=== PATIENT | female | born 1985 | race African-American/Black ===

== ENCOUNTER 2017-03-07 22:22 | Inpatient (IN) ==
[2017-03-07] MEDS ORDERED: CITRIC ACID/SODIUM CITRATE 30 ML UDCUP PO ONE (22:43)
[2017-03-07] MEDS ORDERED: ceFAZolin 2,000 MG in PREMIX 1 EACH IV ONE (22:43)
[2017-03-07] MEDS ORDERED: MAGNESIUM SULF RIDER 100 ML IV ONE (22:47)
[2017-03-07] MEDS ORDERED: OXYTOCIN 10 UNIT/ML VIAL ONE (22:49)
[2017-03-07] MEDS ORDERED: OXYTOCIN/LR 20 UNIT/1,000 ML BAG IV ONE (22:49)
[2017-03-07] MEDS ORDERED: BETAMETH SODIUM PHOS/ACETATE 30 MG/5 ML VIAL ONE ×2 (22:49→22:50)
[2017-03-07] MEDS ORDERED: MAGNESIUM SULF DRIP 40 GM/1,000 ML ML IV ONE (22:49)
[2017-03-07] MEDS ORDERED: BETAMETH SODIUM PHOS/ACETATE 30 MG/5 ML VIAL IM ONE (22:52)
[2017-03-07] MEDS ORDERED: hydrALAZINE 20 MG/1 ML VIAL IV PRN (22:53)
[2017-03-07] MEDS ORDERED: FAMOTIDINE 20 MG/2 ML VIAL IV ONE (22:54)
[2017-03-07 22:55] LABS: Basophils % 0.1 % (0.0-0.8); Hematocrit 33.5 VOL% (35.7-47.0); Hemoglobin 11.2 GM/DL (12.0-16.0); Immature Granulocytes % 1.4 %; Immature Granulocytes Absolute 0.33 #; Lymphocytes # 1.6 10*3/uL (1.4-4.0); Lymphocytes % 6.7 % (21.3-54.2); Mean Corpuscular HGB Conc 33.4 GM/DL (32-36); Mean Corpuscular Hemoglobin 29 PG (27-34); Mean Corpuscular Volume 86.6 FL (87-102); Mean Platelet Volume 10.8 FL (9.6-12.0); Monocytes # 1.1 10*3/uL (0.11-0.8); Monocytes % 4.9 % (1.7-12.7); Neutrophils # 20.2 10*3/uL (1.4-7.4); Neutrophils % 86.9 % (38.7-73.9); Platelet Count 255 T/CUMM (130-400); Red Blood Count 3.87 MC/CUMM (3.8-5.5); Red Cell Distribution Width 14.2 % (9.3-17.3); White Blood Count 23.3 T/CUMM (4-12)
[2017-03-07] MEDS ORDERED: OXYTOCIN/LR 30 UNIT/1,000 ML BAG IV ONE ×2 (22:59→23:30)
[2017-03-07] MEDS ORDERED: LACTATED RINGERS 1,000 ML IV SCH (23:00)
[2017-03-07] MEDS ORDERED: MAGNESIUM SULF DRIP 40 GM/1,000 ML ML IV SCH (23:00)
[2017-03-07 23:17] LABS: INR 0.9; PT Patient Result 9.7 SECS; Partial Thromboplastin Time 32.6 SECS (0-40)
[2017-03-07 23:17] LABS: Apearance,Urine Slightly Hazy (Clear); Bacteria,Urine Moderate /HPF (Few); Bilirubin,Urine Negative (Negative); Blood, Urine Negative (Negative); Glucose,Urine (UA) Negative (Negative); Ketones,Urine 80 mg/dL (Negative); Mucus,Urine Occasional /LPF (Occasional); Nitrite,Urine Negative (Negative); Protein,Urine 30 MG/DL; RBC,Urine 2 /HPF (0-4); Squamous Epithelial Cell,Urine Occasional /HPF (0-10); Transitional Epi Cells,Urine Occasional /HPF (<1); Urine Color Yellow (Yellow); WBC,Urine 16 /HPF (0-6)
[2017-03-07 23:22] LABS: Barbiturates Screen,Urine Negative (Negative); Benzodiazepines Screen,Urine Negative (Negative); Cannabinoid Screen,Urine Negative (Negative); Opiate Screen,Urine Negative (Negative); Phencyclidine Screen,Urine Negative (Negative)
[2017-03-07 23:22] LABS: Albumin 2.4 G/DL (3.4-5.0); Bilirubin,Total 0.8 MG/DL (0.2-1.0); Calcium 8.2 MG/DL (8.5-10.1); Osmolality,Calculated 265.1 MOS/KG (273-304); Potassium 3.6 MMOL/L (3.5-5.1); Total Protein 6.5 G/DL (6.4-8.3)
[2017-03-08] MEDS ORDERED: fentaNYL 100 MCG/2 ML VIAL ONE (00:23)
[2017-03-08] MEDS ORDERED: MIDAZOLAM 2 MG/2 ML VIAL ONE (00:24)
--- NOTE | 2017-03-08 00:27 | OB/GYN History & Physical ---
History of Present Illness Chief complaint: Active labor, spontaneous rupture membranes meconium History of present illness: Ms. Rogers is a 31 year old female 3 para 2 EDC is uncertain ultrasound was obtained upon arrival to labor and delivery, ultrasound demonstrated 34 weeks and 4 days. Patient obvious rupture membranes thick meconium staining cardiac activity was noted. Patient has not had any care with this . Last was a stillborn and was also a section was performed at approximately 29 weeks. Patient was anemic immediately given IV magnesium sulfate, 4 g bolus, also 2 doses of IV Apresoline. Ultrasound was obtained in labor and delivery demonstrated vertex presentation with measured approximately 34 weeks gestation. Senna was also grade 3. Surgery was immediately notified this patient was prepared for a repeat section secondary to oligohydramnios , severe preeclampsia, positive drug screen for crystal meth. Home Medications Medication Instructions Recorded Confirmed Type No Known Home Medications [No 03/07/17 03/07/17 History Known Home Medications] Allergies Allergy/AdvReac Type Severity Reaction Status Date / Time aspirin Allergy Intermediate ITCHING Verified 11/05/14 22:45 Oranges Allergy Intermediate ITCHING Verified 11/05/14 22:45 Medical,Surgical,& Family Hx - Medical History Cardio: History of: Hypertension No history of: CHF, Cardiovascular Problems Psychological: No history of: Behavior Problems, Depression, Psychiatric/Substance Abuse Tx , Psychiatric Problems Neurology: History of: Migraine No history of: Seizures HEENT: No history of: Ear Problem, Eye Problem Respiratory: History of: Pneumonia No history of: Asthma Genitourinary: No history of: Bladder Problem Gastrointestinal: No history of: Bowel Obstruction, Diverticulitis/ Diverticulosis, GERD Reproductive: History of: Complication No history of: Abnormal Pap Smear, Ectopic - Surgical History Neurologic Surgeries: Patient denies: Neurologic Surgery Reproductive Surgeries: Surgical HX of;: Section - Family History Family History: Denies;: Family Anesthesia Reaction, Family Cancer, Family Diabetes, Family Heart Disease, Family Hypertension, Family Psychiatric Problems, Family Stroke - Social History Smoking Status: Current some day smoker Frequency of Alcohol Use: None Type of Drug Use: None 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 Vitals: Vital Signs Pulse Resp BP 03/07/17 23:00 209/111 03/07/17 22:39 65 20 165/96 General appearance: disheveled - Antepartum / Post Antepartum Exam Cervix - Dilatation: 4 cm Station: Minus Rupture: Positive meconium - Head Head exam: Present: normal inspection - Eye Eye exam: Present: EOMI Pupils: Present: JUJU - ENT ENT exam: Present: normal exam - Neck Neck exam: Present: normal inspection - Respiratory Respiratory exam: Present: clear to auscultation bilaterally - Breast Breasts: as per HPI - Cardiovascular Cardiovascular exam: Present: regular rate and rhythm, tachycardia - GI/Abdominal GI/Abdominal exam: Present: normal bowel sounds - Extremities Exam Extremities exam: Present: normal inspection - Back Exam Back exam: Present: normal inspection - Neurological Exam Neurological exam: Present: alert - Psychiatric Psychiatric exam: Present: normal affect, agitated, anxious - Skin Skin exam: Present: normal color Assessment and Plan (1) Oligohydramnios Status: Acute Current Visit: Yes (2) PIH ( induced hypertension) Status: Acute Current Visit: Yes (3) Drug abuse Status: Acute Current Visit: Yes (4) Status post repeat low transverse section Status: Acute Assessment and plan: Repeat section, no care, drug abuse, PIH, oligohydramnios, possible IUGR, Current Visit: Yes Results - Labs CBC & BMP: 03/07/17 22:46 03/07/17 22:46
[2017-03-08] MEDS ORDERED: ONDANSETRON 4 MG/2 ML VIAL IV PRN (00:33)
[2017-03-08] MEDS ORDERED: ACETAMINOPHEN 325 MG TABLET PO PRN (00:33)
[2017-03-08] MEDS ORDERED: SIMETHICONE CHEW 80 MG TABLET PO PRN (00:33)
[2017-03-08] MEDS ORDERED: OXYTOCIN/LR 20 UNIT/1,000 ML BAG IV ONE (00:33)
[2017-03-08] MEDS ORDERED: RHO(D) IMMUNE GLOBULIN 300 MCG SYRINGE IM ONE (00:33)
--- NOTE | 2017-03-08 00:33 | Operative Note ---
Date of procedure: 03/08/17 Procedure: Preoperative diagnosis: No care, status post previous section 2, oligohydramnios, positive drug screen for crystal met, PIH Postoperative diagnosis: Same Anesthesia:[] General Estimated blood loss: [] 300 Surgeon: Dr. Arana Findings: [] Thick meconium, no amniotic fluid, questionable IUGR, male born at 20 3:33 PM, Apgars were 6 at 1 minute and 8 at 5, weight was 6 pounds and 4 ounces, nursery present for this delivery Complications: None Procedure: Low transverse section The patient was taken to the operating suite heart tones were obtained prior to and after regional anesthesia was obtained. She was placed in supine position her abdomen was prepped and draped in usual manner for major abdominal surgery. Through an abdominal incision the skin, subcutaneous, fascial layer and peritoneal the abdomen was entered. The bladder flap was created and a low transverse incision was made.. Fluid demonstrated no fluid, thick meconium, very necrotic placenta was also noted. Fetus also demonstrated the possibility of IUGR with peeling skin x, Apgars, the placenta was delivered and sent to lab for further evaluation. Injected with intrauterine Pitocin. The first layer of the uterus was closed with #1 Vicryl in a continuous locking manner. Close to imbricate the first layer with #1 Vicryl. The peritoneum was approximated with #2-0 Vicryl.[] All the last sponges and instruments were accounted for -2. ) #2-0 Vicryl. Fascia was approximated with #0-0 Maxon.. The skin was approximated with anne-marie. She tolerated procedure well and was taken to recovery room in stable condition. Surgeon / Physician: Brandin Arana Results - Labs CBC & BMP: 03/07/17 22:46 03/07/17 22:46 Discharge Plan - Discharge Medications No Action No Known Home Medications [No Known Home Medications] - Follow Up or Referral - Forms/Instructions
--- NOTE | 2017-03-08 00:36 | Anesthesia Post-Op ---
Anesthesia Post OP - Post Ansesthetic Evaluation Patient seen in post op: Yes Resp: within normal limits CV: within normal limits Mental: within normal limits Temp: within normal limits [id number]: within normal limits Nausea and Vomiting: within normal limits Pain: within normal limits
[2017-03-08] MEDS ORDERED: SEVOFLURANE 1 UNIT/15 MINUTE INH ONE (00:37)
[2017-03-08] MEDS ORDERED: LACTATED RINGERS 1,000 ML IV SCH (01:00)
[2017-03-08] MEDS ORDERED: NALOXONE 0.4 MG/ML VIAL IV PRN (01:17)
[2017-03-08 01:30] LABS: Lymphocytes 11 % (20-55); Platelet Estimate Normal; Segmented Neutrophils 83 % (50-85); Total Cells Counted 100
[2017-03-08] MEDS ORDERED: HYDROmorphone PCA 30 MG/30 ML SYRINGE IV SCH (01:30)
[2017-03-08 06:12] LABS: Basophils % 0.1 % (0.0-0.8); Hematocrit 29.2 VOL% (35.7-47.0); Hemoglobin 9.7 GM/DL (12.0-16.0); Immature Granulocytes % 1.1 %; Immature Granulocytes Absolute 0.29 #; Lymphocytes # 1.1 10*3/uL (1.4-4.0); Lymphocytes % 4.1 % (21.3-54.2); Mean Corpuscular HGB Conc 33.2 GM/DL (32-36); Mean Corpuscular Hemoglobin 29 PG (27-34); Mean Corpuscular Volume 86.9 FL (87-102); Mean Platelet Volume 11.1 FL (9.6-12.0); Neutrophils # 23.4 10*3/uL (1.4-7.4); Neutrophils % 90.7 % (38.7-73.9); Platelet Count 258 T/CUMM (130-400); Red Blood Count 3.36 MC/CUMM (3.8-5.5); Red Cell Distribution Width 14.4 % (9.3-17.3); White Blood Count 25.8 T/CUMM (4-12)
[2017-03-08 06:16] LABS: HIV Antigen/Antibody Result Nonreactive (Nonreactive)
--- NOTE | 2017-03-08 07:15 | Ultrasound Report ---
Exam: US OB >= 14 weeks fetus Date: 03/07/2017 10:51 PM Indication: Pain 34 weeks 6 days in active labor patient stated she didn't know she was Comparison: None recent Findings: Study was initially reviewed by [facility]. The fetus is in the cephalic presentation with an anterior placenta. BPD: 33 weeks 2 days Head circumference: 33 weeks 4 days Abdominal circumference: 36 weeks 6 days Femur length: 36 weeks 2 days Amniotic fluid index: 0 Estimated weight: 2688 +/- 403.27 g or 5 lbs. 15 oz. Cervical length: Not well demonstrated heart rate: 153 bpm structures: Four-chamber heart view stomach bubble and bladder are demonstrated. Limited exam prior to Maternal ovaries not visualized. Impression: 1. 34 weeks 6 day intrauterine estimated date of delivery of 04/12/2017. 2. Oligohydramnios suggest rupture of membranes Critical test report was called to Dr. Arana by [facility] radiology at 12:26 AM Ultrasound images were stored and captured PROCEDURE INTERPRETED AT [facility] Final Report Signed by: Dr. Bharat Oliva
[2017-03-08 07:47] LABS: Band Neutrophils 5 % (0-10); Hypochromasia 1+; Lymphocytes 3 % (20-55); Microcytosis 1+; Segmented Neutrophils 88 % (50-85); Total Cells Counted 100
[2017-03-08 07:48] LABS: Platelet Estimate Normal
[2017-03-08] MEDS: DOCUSATE SODIUM 100 MG CAPSULE PO SCH ×2 (08:13→22:52)
[2017-03-08] MEDS: MULTIVITAMIN (PRENATAL) TABLET PO SCH (08:13)
[2017-03-08 08:48] LABS: Hepatitis B Surface Ag Quant 0.16 Index; Hepatitis B Surface Ag Result Negative (Negative)
--- NOTE | 2017-03-08 09:08 | OB/GYN Progress Note ---
Assessment and Plan (1) Previous section Status: Acute Current Visit: Yes (2) Status post repeat low transverse section Status: Acute Assessment and plan: Initiate routine postop orders. 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 - Constitutional Vitals: Vital Signs Temp Pulse Pulse Resp BP BP Pulse Ox 03/08/17 07:49 18 03/08/17 05:38 18 03/08/17 05:00 18 03/08/17 04:00 18 03/08/17 02:58 18 03/08/17 01:49 96 H 18 158/96 03/08/17 01:40 79 18 170/102 100 03/08/17 01:19 90 18 166/100 03/08/17 01:04 85 18 164/98 03/08/17 00:49 83 18 169/97 03/08/17 00:34 97.3 F L 90 20 159/87 03/07/17 23:00 209/111 03/07/17 22:39 65 20 165/96 Pulse Ox 03/08/17 07:49 03/08/17 05:38 03/08/17 05:00 03/08/17 04:00 03/08/17 02:58 03/08/17 01:49 99 03/08/17 01:40 03/08/17 01:19 100 03/08/17 01:04 100 03/08/17 00:49 100 03/08/17 00:34 03/07/17 23:00 03/07/17 22:39 General appearance: no acute distress - Antepartum / Post Post Exam Breast: bilateral: normal Abdomen obstetrics: Present: bowel sounds normal Vagina: Present: normal moisture, discharge (Light lochia rubra) Uterus exam: Present: enlarged (Fundus firm midline) - Gyencological / Post Surgical Post Surgical Exam Lungs: bilateral: normal Chest: Normal S1, Normal S2 Extremities 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: normal Abdomen obstetrics progress note: Present: normal appearance Incision OB: Present: normal, dry, intact - Respiratory Respiratory exam: Present: clear to auscultation bilaterally - Cardiovascular Cardiovascular exam: Present: regular rate and rhythm - GI/Abdominal GI/Abdominal exam: Present: normal bowel sounds, soft - Extremities Exam Extremities exam: Present: normal inspection - Neurological Exam Neurological exam: Present: alert, oriented X3 - Psychiatric Psychiatric exam: Present: normal affect, normal mood - Skin Skin exam: Present: normal color, warm Results - Labs CBC & BMP: 03/08/17 05:31 03/07/17 22:46
[2017-03-08] MEDS: IBUPROFEN 800 MG TABLET PO PRN (14:11)
[2017-03-08] MEDS: FERROUS SULFATE 325 MG TABLET PO SCH ×2 (14:12→22:52)
[2017-03-08] MEDS: MAGNESIUM HYDROXIDE SUSP 30 ML UDCUP PO PRN (22:52)
[2017-03-08] MEDS ORDERED: PROPOFOL 200 MG/20 ML VIAL IV ONE (23:16)
[2017-03-08] MEDS ORDERED: hydrALAZINE 20 MG/1 ML VIAL ONE (23:16)
[2017-03-08] MEDS ORDERED: ONDANSETRON 4 MG/2 ML VIAL ONE (23:16)
[2017-03-08] MEDS ORDERED: LABETALOL 100 MG/20 ML VIAL IV ONE (23:16)
[2017-03-08] MEDS ORDERED: SUCCINYLCHOLINE 200 MG/10 ML VIAL ONE (23:16)
[2017-03-09] MEDS: FERROUS SULFATE 325 MG TABLET PO SCH (10:12)
[2017-03-09] MEDS: MULTIVITAMIN (PRENATAL) TABLET PO SCH (10:12)
[2017-03-09] MEDS: DOCUSATE SODIUM 100 MG CAPSULE PO SCH (10:12)
[2017-03-09] MEDS: MAGNESIUM HYDROXIDE SUSP 30 ML UDCUP PO PRN (10:12)
--- NOTE | 2017-03-09 11:20 | Pathology Report from [facility] ---
[facility] ACCESSION # : [id number] PATIENT NAME : Ambar Jiang ORDERING DR : ARVIND SANDOVAL MD CLINICAL HX: IUP @ 34.4 wks per patient; U/S no care, PIH +drug screen , ?prolonged ROM POST-OP DX: Same SPECIMEN INFO: Placenta GROSS DESCRIPTION: The specimen is received in formalin labeled with the patients name and consists of a 479 gram placenta which measures 19.0 x 18.0 x 2.8 cm. membranes are pink-coffey and translucent with heavy meconium staining noted. The umbilical cord measures 34.0 cm, is hypercoiled. The cord contains three vessels and is eccentrically inserted. The surface is blue -fuentes and intact. The maternal surface displays hemorrhagic, mildly disrupted cotyledons with an area of fibrin noted upon sectioning measuring 2.0 x 1.5 cm. Sections submitted: A membranes and cord, B and maternal surfaces. DIAGNOSIS FOR AMBAR JIANG: PLACENTA, 34.4 WEEKS GESTATIONAL AGE, DELIVERY: Slightly immature placenta, 479 gm trimmed weight. Pigment laden macrophages within the membranes. Severe acute chorioamnionitis. Acute funisitis in a trivascular umbilical cord, 34 cm in length. Placental infarct. COLLECTED DATE: 03/08/2017 [facility] REPORT DATE: 03/09/2017 ELECTRONICALLY SIGNED BY: Harriett Haney M.D. 03/09/2017 - 10:58:22 MTDCelia
[2017-03-09] MEDS: IBUPROFEN 800 MG TABLET PO PRN (11:54)
--- NOTE | 2017-03-09 14:58 | OB/GYN Progress Note ---
Assessment and Plan (1) Previous section Status: Acute Current Visit: Yes (2) Status post repeat low transverse section Status: Acute Assessment and plan: Initiate routine postop orders. 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 - Constitutional Vitals: Vital Signs Temp Pulse Resp BP Pulse Ox 03/09/17 12:00 98.4 F 78 20 134/84 98 03/09/17 08:00 98.7 F 81 16 125/69 97 03/09/17 06:55 18 03/09/17 06:00 72 18 126/80 98 03/09/17 04:00 98.3 F 79 18 130/71 99 03/09/17 03:00 18 03/09/17 02:00 84 18 126/72 98 03/09/17 01:00 18 03/09/17 00:00 96.6 F L 82 18 134/76 98 03/08/17 22:00 88 18 123/71 99 03/08/17 20:00 96.6 F L 100 H 18 117/75 98 03/08/17 18:00 91 H 18 131/86 98 03/08/17 16:00 97.8 F 92 H 20 133/87 98 General appearance: no acute distress - Antepartum / Post Post Exam Breast: bilateral: normal Abdomen obstetrics: Present: bowel sounds normal Vagina: Present: normal moisture, discharge (Light lochia rubra) Uterus exam: Present: enlarged (Fundus firm midline) - Gyencological / Post Surgical Post Surgical Exam Lungs: bilateral: normal Chest: Normal S1, Normal S2 Extremities 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
--- NOTE | 2017-03-09 15:00 | Discharge Summary ---
<Shira Chinchilla - Last Filed: 03/09/17 14:58> Hospital Course - Hospital Course Hospital Course: Ms. Rogers presented to the labor department in active labor with no care. She was a previous section and was delivered via at this visit. She delivered a viable infant with meconium staining which is currently in the NICU. The patient has done well postoperatively. Her incision is well approximated without signs of infection. Her bowel sounds are positive she has had a normal bowel movement. Her fundus is firm and midline. Her bleeding is minimal with no odor. Her vital signs and lab values are stable. She will be discharged home prescriptions for pain and a follow-up appointment in our office. Diagnosis - Discharge Diagnosis (1) Previous section Status: Acute (2) Status post repeat low transverse section Status: Acute (3) Active labor Status: Acute Specialty Discharge - Follow Up or Referrals Follow up with: Brandin Arana MD [Physician] - 2 Weeks Discharge Plan - Discharge Data Disposition: Disch To Home/Self Care Condition at Discharge: Stable Discharge Diet: advance to your usual diet, regular diet Activity: increase activity as tolerated, no lifting, no prolonged standing Hygiene: may shower Weight Bearing at Discharge: partial weight bearing Driving: not until seen by doctor Contact your physician if you experience:: fever over 101, pain uncontrolled by pain medications - Discharge Medications New Ibuprofen Tab [Motrin Tab] 800 mg PO Q8H PRN #30 tablet PRN Reason: Pain Severe (8-10) Ferrous Sulfate Tab [Feosol Original Tab] 325 mg PO BID #60 tablet HYDROcodone/ACETAMIN 5-325 [Seymour 5-325] 2 tablet PO Q6H PRN #30 tablet PRN Reason: Pain Severe (8-10) - Follow Up or Referral Follow Up: Brandin Arana MD [Physician] - 2 Weeks - Forms/Instructions Exam - Constitutional Vitals: Period Temp Pulse Resp BP Sys/Rivera Pulse Ox Last 24 Hr 96.6 F-98.7 F 72-100 16-20 117-134/69-87 97-99 General appearance: no acute distress - Respiratory Respiratory exam: Present: clear to auscultation bilaterally - Cardiovascular Cardiovascular exam: Present: regular rate and rhythm - GI/Abdominal GI/Abdominal exam: Present: normal bowel sounds - Extremities Exam Extremities exam: Present: normal inspection - Neurological Exam Neurological exam: Present: alert, oriented X3 - Psychiatric Psychiatric exam: Present: normal affect, normal mood - Skin Skin exam: Present: normal color, warm DS: Provider Date of admission: 03/07/17 22:43 Primary care physician: . No PCP Attending physician on admission: Brandin Arana MD Consults: 03/07/17 22:43 Consult to Anesthesiology [CONS] Routine Consulting Provider: Reason for Anesthesiology: Pre-op Clearance 03/08/17 00:34 Consult to International Marketing Intern [CONS] Routine Consult International Marketing Intern: Breast Feeding 03/08/17 07:32 Consult to Case Mgmt/Social Srvs [CONS] Routine Reason for Case Mgmt/Social Srvs: Other Abuse/Neglect Consult Comment: no care pos drug screen Discharging clinician: Shira Chinchilla CNM Expected date of discharge: 03/10/17 <Brandin Arana - Last Filed: 03/09/17 15:12> Diagnosis - Discharge Diagnosis (1) Oligohydramnios Status: Acute (2) PIH ( induced hypertension) Status: Acute (3) Drug abuse Status: Acute (4) Status post repeat low transverse section Status: Acute
[2017-03-09 17:13] VITALS: BP 131/74
== END 2017-03-09 20:25 | disposition home or self-care (01) | DRG 765 ==
LOC: N.LDOUT 22:22 → N.LD 22:25 → N.OB 03-08 13:56
PROVIDERS: ADMIT Obstetrics & Gynecology; ATTEND Obstetrics & Gynecology
PROC: LDCSECT (ICD-10-PCS; 2017-03-07 23:00)

== ENCOUNTER 2018-10-19 10:58 | Inpatient (IN) ==
[2018-10-19] MEDS ORDERED: ONDANSETRON 4 MG/2 ML VIAL IV STA (11:34)
[2018-10-19] MEDS ORDERED: MORPHINE 4 MG/1 ML VIAL IV STA (11:34)
[2018-10-19] MEDS ORDERED: SODIUM CHLORIDE 0.9% 2,000 ML IV STA (11:34)
[2018-10-19 11:55] LABS: Basophils % 0.1 % (0.0-0.8); Eosinophils # 0.1 10*3/uL (0.0-0.87); Eosinophils % 0.2 % (0.00-10.9); Immature Granulocytes % 1.1 %; Immature Granulocytes Absolute 0.22 #; Lymphocytes % 9.4 % (21.3-54.2); Mean Corpuscular HGB Conc 31.3 GM/DL (32-36); Mean Corpuscular Hemoglobin 30 PG (27-34); Mean Corpuscular Volume 94.9 FL (87-102); Mean Platelet Volume 10.2 FL (9.6-12.0); Monocytes # 1.2 10*3/uL (0.11-0.8); Monocytes % 5.6 % (1.7-12.7); Neutrophils # 17.3 10*3/uL (1.4-7.4); Neutrophils % 83.6 % (38.7-73.9); Platelet Count 107 T/CUMM (130-400); Red Blood Count 1.58 MC/CUMM (3.8-5.5); Red Cell Distribution Width 13.7 % (9.3-17.3); White Blood Count 20.8 T/CUMM (4-12)
[2018-10-19] MEDS ORDERED: SODIUM CHLORIDE 0.9% 1,000 ML IV PRN ×2 (12:01→13:06)
[2018-10-19 12:02] LABS: Hemoglobin 4.7 GM/DL (12.0-16.0)
[2018-10-19 12:07] LABS: Amorphous Crystals,Urine Occasional /HPF (Few); Apearance,Urine CLOUDY (Clear); Bacteria,Urine Moderate /HPF (Few); Bilirubin,Urine Negative (Negative); Blood, Urine Small mg/dL (Negative); Glucose,Urine (UA) Negative (Negative); Ketones,Urine 5 mg/dL (Negative); Mucus,Urine Few /LPF (Occasional); Nitrite,Urine Negative (Negative); Protein,Urine 100 MG/DL; RBC,Urine 22 /HPF (0-4); Squamous Epithelial Cell,Urine Occasional /HPF (0-10); Urine Specific Gravity 1.019 (1.001-1.035); WBC,Urine 348 /HPF (0-6)
[2018-10-19 12:08] LABS: Urine Color Yellow (Yellow)
[2018-10-19 12:10] LABS: Alanine Aminotransferase 10 U/L (13-56); Albumin 2.4 G/DL (3.4-5.0); Alkaline Phosphatase 73 U/L (45-117); Aspartate Amino Transferase 24 U/L (0-37); Blood Urea Nitrogen 17 MG/DL (7-18); Calcium 7.3 MG/DL (8.5-10.1); Glucose 116 MG/DL (74-106); Lipase < 50.0 U/L (73-393); Osmolality,Calculated 277.7 MOS/KG (273-304); Potassium 3.7 MMOL/L (3.5-5.1); Sodium 138 MMOL/L (136-145); Total Protein 5.3 G/DL (6.4-8.3)
[2018-10-19 12:30] LABS: Band Neutrophils 1 % (0-10); Hypochromasia 1+; Lymphocytes 11 % (20-55); Microcytosis 1+; Nucleated Red Blood Cells 1 (0-5); Platelet Estimate Decreased; Segmented Neutrophils 87 % (50-85); Total Cells Counted 100
[2018-10-19] MEDS ORDERED: miSOPROStol 200 MCG TABLET ONE ×2 (13:24→14:45)
[2018-10-19] MEDS ORDERED: LACTATED RINGERS 1,000 ML IV SCH ×2 (13:30→15:30)
[2018-10-19] MEDS ORDERED: OXYTOCIN/D5LR 20 UNIT/1,000 ML PREMIX IV SCH (13:30)
[2018-10-19] MEDS ORDERED: MICROFIBRILLAR COLLAGEN POWDER 1 GM CAN TOP ONE (13:40)
[2018-10-19] MEDS ORDERED: OXYTOCIN/LR 20 UNIT/1,000 ML BAG IV ONE ×2 (13:47→15:20)
[2018-10-19] MEDS ORDERED: OXYTOCIN 10 UNIT/ML VIAL ONE (13:47)
[2018-10-19] MEDS ORDERED: RHO(D) IMMUNE GLOBULIN 300 MCG SYRINGE IM ONE (15:20)
[2018-10-19] MEDS ORDERED: ACETAMINOPHEN 325 MG TABLET PO PRN (15:20)
[2018-10-19] MEDS ORDERED: ceFAZolin 1,000 MG in SYRINGE 1 EACH IV SCH (15:30)
[2018-10-19] MEDS ORDERED: hydrALAZINE 20 MG/1 ML VIAL ONE (15:35)
[2018-10-19] MEDS ORDERED: hydrALAZINE 20 MG/1 ML VIAL IV ONE ×2 (15:35→16:06)
[2018-10-19] MEDS ORDERED: MEPERIDINE 25 MG/1 ML VIAL ONE (15:57)
[2018-10-19] MEDS ORDERED: MEPERIDINE 25 MG/1 ML VIAL IV PRN (15:58)
[2018-10-19] MEDS ORDERED: SUGAMMADEX 200 MG/2 ML VIAL IV ONE (16:19)
[2018-10-19] MEDS ORDERED: LABETALOL 20 MG/4 ML SYRINGE IV ONE ×2 (16:25→16:40)
[2018-10-19] MEDS ORDERED: PROPOFOL 200 MG/20 ML VIAL IV ONE (16:25)
[2018-10-19] MEDS ORDERED: LIDOCAINE 2% TOP JELLY 5 ML TUBE TOP ONE (16:25)
[2018-10-19] MEDS ORDERED: MIDAZOLAM 2 MG/2 ML VIAL ONE (16:26)
[2018-10-19] MEDS ORDERED: SEVOFLURANE 1 UNIT/15 MINUTE INH ONE (16:26)
[2018-10-19] MEDS ORDERED: LIDOCAINE 1% 5 ML VIAL ONE (16:26)
[2018-10-19] MEDS ORDERED: PHENYLEPHRINE 0.5% NASAL SPRAY 15 ML BOTTLE BOTH NARES ONE (16:26)
[2018-10-19] MEDS ORDERED: ROPIVACAINE 0.5% 30 ML VIAL ONE (16:26)
[2018-10-19] MEDS ORDERED: fentaNYL 100 MCG/2 ML VIAL ONE (16:26)
[2018-10-19] MEDS ORDERED: DEXAMETHASONE 4 MG/1 ML VIAL ONE (16:26)
[2018-10-19] MEDS ORDERED: ONDANSETRON 4 MG/2 ML VIAL ONE (16:26)
[2018-10-19] MEDS ORDERED: SUCCINYLCHOLINE 200 MG/10 ML VIAL ONE (16:27)
[2018-10-19] MEDS ORDERED: SODIUM CHLORIDE 0.9% 2,000 ML IV ONE (16:27)
[2018-10-19] MEDS ORDERED: PHENYLEPHRINE 1 MG/10 ML SYRINGE IV ONE (16:27)
[2018-10-19] MEDS ORDERED: ROCURONIUM 100 MG/10 ML VIAL IV ONE (16:27)
[2018-10-19 17:04] LABS: Apearance,Urine CLOUDY (Clear); Bacteria,Urine Many /HPF (Few); Bilirubin,Urine Negative (Negative); Blood, Urine Small mg/dL (Negative); Glucose,Urine (UA) 50 mg/dL (Negative); Ketones,Urine Negative (Negative); Mucus,Urine Occasional /LPF (Occasional); Nitrite,Urine Negative (Negative); Protein,Urine 100 MG/DL; RBC,Urine 20 /HPF (0-4); Squamous Epithelial Cell,Urine Few /HPF (0-10); Urine Color Yellow (Yellow); Urine Specific Gravity 1.014 (1.001-1.035); Urine Urobilinogen < 2.0 EU/DL (0.2-1.0); WBC,Urine 65 /HPF (0-6)
[2018-10-19] MEDS ORDERED: miSOPROStol 200 MCG TABLET RECTAL ONE (17:37)
[2018-10-19] MEDS: HYDROmorphone 2 MG/1 ML VIAL IV PRN (18:03)
[2018-10-19] MEDS: ONDANSETRON 4 MG/2 ML VIAL IV PRN (18:04)
[2018-10-19] MEDS: LABETALOL 100 MG TABLET PO SCH (18:11)
[2018-10-19] MEDS: LISINOPRIL 10 MG TABLET PO SCH (18:21)
[2018-10-19] MEDS ORDERED: FUROSEMIDE 40 MG/4 ML VIAL IV ONE (19:09)
[2018-10-19 20:32] LABS: Apearance,Urine CLOUDY (Clear); Bacteria,Urine Many /HPF (Few); Bilirubin,Urine Negative (Negative); Blood, Urine Small mg/dL (Negative); Glucose,Urine (UA) 50 mg/dL (Negative); Ketones,Urine Negative (Negative); Nitrite,Urine Negative (Negative); Protein,Urine 100 MG/DL; RBC,Urine 14 /HPF (0-4); Squamous Epithelial Cell,Urine Occasional /HPF (0-10); Urine Color Yellow (Yellow); Urine Specific Gravity 1.011 (1.001-1.035); Urine Urobilinogen < 2.0 EU/DL (0.2-1.0); WBC,Urine 15 /HPF (0-6)
[2018-10-19] MEDS ORDERED: LABETALOL 100 MG TABLET PO SCH (21:00)
[2018-10-19 21:04] LABS: Barbiturates Screen,Urine Negative (Negative); Benzodiazepines Screen,Urine Positive (Negative); Cannabinoid Screen,Urine Negative (Negative); Opiate Screen,Urine Positive (Negative); Phencyclidine Screen,Urine Negative (Negative)
[2018-10-19] MEDS: DOCUSATE SODIUM 100 MG CAPSULE PO SCH (21:16)
[2018-10-19] MEDS ORDERED: diphenhydrAMINE 50 MG/1 ML VIAL IV PRN (22:59)
[2018-10-19] MEDS ORDERED: diphenhydrAMINE 50 MG/1 ML VIAL ONE (23:01)
[2018-10-20] MEDS: LABETALOL 100 MG TABLET PO SCH ×4 (00:27→20:44)
[2018-10-20 04:27] LABS: Basophils % 0.2 % (0.0-0.8); Hematocrit 26.2 VOL% (35.7-47.0); Hemoglobin 8.9 GM/DL (12.0-16.0); Immature Granulocytes % 0.9 %; Immature Granulocytes Absolute 0.19 #; Lymphocytes # 1.1 10*3/uL (1.4-4.0); Lymphocytes % 5.1 % (21.3-54.2); Mean Corpuscular Hemoglobin 28 PG (27-34); Mean Corpuscular Volume 82.4 FL (87-102); Monocytes # 0.6 10*3/uL (0.11-0.8); Monocytes % 2.8 % (1.7-12.7); Neutrophils # 20.2 10*3/uL (1.4-7.4); Platelet Count 111 T/CUMM (130-400); Red Blood Count 3.18 MC/CUMM (3.8-5.5); Red Cell Distribution Width 17.2 % (9.3-17.3); White Blood Count 22.1 T/CUMM (4-12)
[2018-10-20] MEDS: HYDROmorphone 2 MG/1 ML VIAL IV PRN (04:34)
[2018-10-20] MEDS: ONDANSETRON 4 MG/2 ML VIAL IV PRN (04:36)
[2018-10-20 05:09] LABS: Band Neutrophils 1 % (0-10); Lymphocytes 7 % (20-55); Segmented Neutrophils 89 % (50-85); Total Cells Counted 100
[2018-10-20 05:10] LABS: Burr Cells Slight; Hypochromasia 1+; Microcytosis 1+; Platelet Estimate Decreased; Target Cells Slight
[2018-10-20] MEDS ORDERED: ceFAZolin 1,000 MG in SYRINGE 1 EACH IV SCH (05:30)
[2018-10-20] MEDS ORDERED: LISINOPRIL 10 MG TABLET PO SCH (09:00)
[2018-10-20] MEDS: SIMETHICONE CHEW 80 MG TABLET PO PRN ×2 (09:54→19:23)
[2018-10-20] MEDS: MULTIVITAMIN (PRENATAL) TABLET PO SCH (09:54)
[2018-10-20] MEDS: FERROUS SULFATE 325 MG TABLET PO SCH ×4 (09:54→21:06)
[2018-10-20] MEDS: MAGNESIUM HYDROXIDE SUSP 30 ML UDCUP PO PRN (09:54)
[2018-10-20] MEDS: DOCUSATE SODIUM 100 MG CAPSULE PO SCH ×3 (09:54→21:06)
[2018-10-20] MEDS: LISINOPRIL 10 MG TABLET PO SCH (09:55)
[2018-10-20] MEDS: IBUPROFEN 800 MG TABLET PO PRN (19:21)
[2018-10-20] MEDS ORDERED: BISACODYL 10 MG SUPP RECTAL PRN (20:02)
[2018-10-21] MEDS: SIMETHICONE CHEW 80 MG TABLET PO PRN ×2 (04:04→09:16)
[2018-10-21] MEDS: MAGNESIUM HYDROXIDE SUSP 30 ML UDCUP PO PRN ×2 (04:04→09:16)
[2018-10-21] MEDS: IBUPROFEN 800 MG TABLET PO PRN ×2 (07:53→21:27)
[2018-10-21] MEDS: LABETALOL 100 MG TABLET PO SCH ×3 (09:16→20:00)
[2018-10-21] MEDS: DOCUSATE SODIUM 100 MG CAPSULE PO SCH ×2 (09:16→20:04)
[2018-10-21] MEDS: FERROUS SULFATE 325 MG TABLET PO SCH ×3 (09:17→20:00)
[2018-10-21] MEDS: MULTIVITAMIN (PRENATAL) TABLET PO SCH (09:17)
[2018-10-21] MEDS: LISINOPRIL 10 MG TABLET PO SCH (10:52)
[2018-10-21] MEDS: METOCLOPRAMIDE 10 MG TABLET PO SCH ×2 (13:18→20:04)
[2018-10-21] MEDS: CIPROFLOXACIN 500 MG TABLET PO SCH (21:26)
[2018-10-22] MEDS: METOCLOPRAMIDE 10 MG TABLET PO SCH ×2 (04:03→12:20)
[2018-10-22] MEDS: DOCUSATE SODIUM 100 MG CAPSULE PO SCH (09:20)
[2018-10-22] MEDS: MULTIVITAMIN (PRENATAL) TABLET PO SCH (09:20)
[2018-10-22] MEDS: LISINOPRIL 10 MG TABLET PO SCH (09:21)
[2018-10-22] MEDS: FERROUS SULFATE 325 MG TABLET PO SCH ×2 (09:21→14:35)
[2018-10-22] MEDS: LABETALOL 100 MG TABLET PO SCH ×2 (09:21→14:02)
[2018-10-22] MEDS: CIPROFLOXACIN 500 MG TABLET PO SCH (09:21)
[2018-10-22 12:17] VITALS: BP 166/103
[2018-10-22] MEDS ORDERED: hydrALAZINE 20 MG/1 ML VIAL IV ONE (13:10)
== END 2018-10-22 14:40 | disposition home or self-care (01) | DRG 786 ==
LOC: N.ED 10:58 → N.EDINP 13:16 → N.OB 14:10
PROVIDERS: ADMIT Obstetrics & Gynecology; ATTEND Obstetrics & Gynecology
PROC: LDCSECT (ICD-10-PCS; 2018-10-19 14:09)